=== PATIENT | female | born 1975 | race Asian ===

== ENCOUNTER 2019-11-15 08:17 | Emergency (ER) | payer OTHER ==
[~2019-11-15] VITALS: Ht 182.9 cm; Wt 59.0 kg
[2019-11-15 08:24] VITALS: TEMP 98.9
[2019-11-15] MEDS ORDERED: OXYC5TAB24 PO (08:43)
[2019-11-15] MEDS ORDERED: ONDA4TAB3 PO (08:44)
[2019-11-15 10:09] LABS: PLATELET COUNT 194 K/uL (152-353)
[2019-11-15 10:26] LABS: SODIUM 135 mmol/L (136-145)
[2019-11-15 10:37] LABS: POTASSIUM 4.8 mmol/L (3.6-5.2)
[2019-11-15 13:42] VITALS: BP 105/66
== END 2019-11-15 13:42 | disposition home or self-care (01) ==
LOC: ED 08:17
PROVIDERS: Emergency Medicine
DX: K75.89 Other specified inflammatory liver diseases (principal); Z20.828 Contact with and (suspected) exposure to other viral communicable diseases
CPT/HCPCS: 36415; 80053; 82550; 82553; 83605; 84484; 85027; 85379; 87040; 87502; 87635; 87651; 93005; 96360; 96375; 99284; J1885; J2405; U0003

== ENCOUNTER 2019-11-17 16:55 | Outpatient (CLI) | payer OTHER ==
[~2019-11-17 16:55] MED LIST: ONDA4TAB3 PO; OXYC5TAB24 PO
[2019-11-17 17:53] LABS: PLATELET COUNT 203 K/uL (152-353)
== END 2019-11-17 20:46 | disposition home or self-care (01) ==
LOC: LABW 16:55
PROVIDERS: Internal Medicine Gastroenterology
DX: R94.5 Abnormal results of liver function studies (principal)
CPT/HCPCS: 36415; 80061; 80074; 80076; 82103; 82525; 82728; 83516; 83540; 83550; 84466; 85027; 86038